=== PATIENT | female | born 1970 ===

== ENCOUNTER 2023-06-12 07:52 | Inpatient (IN) | payer MEDICAID, OTHER ==
[~2023-06-12] VITALS: Ht 157.5 cm; Wt 67.1 kg
[2023-06-12] MEDS ORDERED: HALO1TAB19 PO (08:07)
[2023-06-12 08:20] LABS: COVID AG,FIA SOURCE NASAL SWAB
[2023-06-12 08:42] LABS: BASOPHILS % (AUTO) 0.6 % (0.0-2.0); EOSINOPHILS % (AUTO) 1.2 % (1.0-6.0); HEMATOCRIT 41.1 % (36-46); HEMOGLOBIN 13.8 g/dL (12.0-16.0); LYMPHOCYTES # (AUTO) 2.5 K/uL (1.0-4.8); LYMPHOCYTES % (AUTO) 32.2 % (22.0-44.0); MEAN CORPUSCULAR HGB CONC 33.5 G/dL (31.0-37.0); MEAN CORPUSCULAR VOLUME 96 fL (80-100); MONOCYTES # (AUTO) 0.6 K/uL (0.1-1.0); MONOCYTES % (AUTO) 7.7 % (2.0-9.0); NEUTROPHILS # (AUTO) 4.6 K/uL (1.8-7.7); NEUTROPHILS % (AUTO) 58.3 % (40.0-70.0); PLATELET COUNT (AUTO) 231 K/uL (150-450); RED BLOOD CELL COUNT(AUTO) 4.31 MIL/uL (4.00-5.20); RED CELL DISTRIBUTION WIDTH 14.5 % (11.5-14.5); WHITE BLOOD COUNT (AUTO) 7.8 K/uL (4.5-11.0)
[2023-06-12 08:50] LABS: SARS-COV2 (COVID) ANTIGEN,FIA Negative (Negative)
[2023-06-12 08:52] LABS: ANION GAP 12 mmol/L (8-16); CALCIUM, TOTAL 9.9 mg/dL (8.8-10.5); CARBON DIOXIDE 25 mmol/L (22-29); CHLORIDE 103 mmol/L (98-107); CREATININE 1.03 mg/dL (0.60-1.30); GLOMERULAR FILTR. RATE CALC 56 mL/min (>60); GLUCOSE,RANDOM 89 mg/dL (70-110); POTASSIUM 3.3 mmol/L (3.5-5.1); SODIUM SERUM 140 mmol/L (136-145); UREA NITROGEN, BLOOD 9 mg/dL (7-18)
[2023-06-12] MEDS ORDERED: HALO2 PO (08:56)
[2023-06-12 08:59] LABS: ALANINE AMINOTRANSFERASE 18 U/L (12-78); ALBUMIN 3.4 g/dL (3.4-5.0); ALKALINE PHOSPHATASE 79 U/L (46-116); ASPARTATE AMINOTRANSFERASE 15 U/L (15-37); BILIRUBIN,TOTAL 0.5 mg/dL (0.1-1.0); TOTAL PROTEIN, SERUM 7.5 g/dL (6.4-8.2)
[2023-06-12 09:10] LABS: ALCOHOL, BLOOD (SERUM) < 3 mg/dL (0-10)
[2023-06-12] MEDS: HALOPERIDOL 5 MG TABLET PO ONE (09:11)
[2023-06-12] MEDS: HALOPERIDOL LACTATE 5 MG/ML VIAL IM ONE (09:19)
[2023-06-12] MEDS ORDERED: LORazepam 2 MG TABLET PO PRN (09:30)
[2023-06-12] MEDS ORDERED: ZOLPIDEM TARTRATE 10 MG TABLET PO PRN (09:30)
[2023-06-12] MEDS: DiphenhydrAMINE HCL 50 MG/ML VIAL IM ONE (11:17)
[2023-06-12] MEDS: LORazepam 2 MG/ML VIAL IM ONE (11:18)
[2023-06-12 12:50] VITALS: BP 110/94; PULSE 100; RESP 18; TEMP 97.1; O2SAT 100
[2023-06-12] MEDS: POTASSIUM CHLORIDE 20 MEQ ER TABLET PO ONE (15:00)
[2023-06-12] MEDS ORDERED: PETROLATUM,WHITE 28 GM JELLY TP PRN (19:30)
[2023-06-12] MEDS ORDERED: CloNIDine HCL 0.1 MG TABLET PO PRN (19:30)
[2023-06-12] MEDS ORDERED: DOCUSATE SODIUM 100 MG CAPSULE PO PRN (19:30)
[2023-06-12] MEDS ORDERED: MAG HYDROX/ALUMINUM HYD/SIMETH ES 30 ML SUSPENSION UDCUP PO PRN (19:30)
[2023-06-12] MEDS ORDERED: IBUPROFEN 400 MG TABLET PO PRN (19:30)
[2023-06-12] MEDS ORDERED: ALBUTEROL SULFATE HFA 90 MCG/PUFF 8 GM INHALER IH PRN (19:30)
[2023-06-12] MEDS ORDERED: ONDANSETRON HCL 4 MG TABLET PO PRN (19:30)
[2023-06-12] MEDS ORDERED: ACETAMINOPHEN 325 MG TABLET PO PRN (19:30)
[2023-06-12] MEDS ORDERED: MAGNESIUM HYDROXIDE SUSPENSION 30 ML UDCUP PO PRN (19:30)
[2023-06-12] MEDS ORDERED: GuaiFENesin/D-METHORPHAN [SUGAR-FREE] 200-20MG/10 ML SYRUP UDCUP PO PRN (19:30)
[2023-06-12] MEDS ORDERED: LOPERAMIDE HCL 2 MG CAPSULE PO PRN (19:30)
[2023-06-13 07:10] VITALS: RESP 18
[2023-06-13 08:17] LABS: CHOL/HDL RATIO 3.5 (3.9-5.7); POTASSIUM 3.5 mmol/L (3.5-5.1); THYROID STIMULATING HORMONE 2.08 uIU/mL (0.36-3.74)
[2023-06-13 08:19] VITALS: BP 126/82; PULSE 84; RESP 16; TEMP 98; O2SAT 99
[2023-06-13] MEDS ORDERED: HALOPERIDOL 2 MG TABLET PO SCH (11:15)
[2023-06-13] MEDS: HALOPERIDOL 5 MG TABLET PO SCH (13:56)
[2023-06-13 20:17] VITALS: BP 131/63; PULSE 89; RESP 18; TEMP 97.8; O2SAT 99
[2023-06-14 08:37] VITALS: BP 115/74; PULSE 116; RESP 17; TEMP 97.7; O2SAT 97
[2023-06-14] MEDS: NICOTINE 14 MG/24 HOUR PATCH TD PRN (14:08)
[2023-06-14] MEDS: INFLUENZA VIRUS VACCINE QVS 2023-24 (6MO+)/PF 60 MCG/0.5 ML SYRINGE IM. ONE (17:29)
[2023-06-14 20:12] VITALS: BP 109/63; PULSE 111; RESP 18; TEMP 97.5; O2SAT 99
[2023-06-15 08:17] VITALS: RESP 16
[2023-06-15 23:44] VITALS: BP 113/73; PULSE 98; RESP 17; TEMP 93.2; O2SAT 99
[2023-06-16 16:11] VITALS: RESP 18
[2023-06-16] MEDS: QUEtiapine FUMARATE 100 MG TABLET PO PRN (17:13)
[2023-06-16 20:42] VITALS: RESP 19
[2023-06-17 14:00] VITALS: RESP 18
[2023-06-17 23:24] VITALS: RESP 18
[2023-06-18 08:24] VITALS: RESP 18
[2023-06-18] MEDS ORDERED: HALO5TAB23 PO (13:33)
[2023-06-19] MEDS ORDERED: HALO2 PO (06:18)
== END 2023-06-18 16:09 | disposition home or self-care (01) | DRG 750 ==
LOC: EMS 07:52 → B3A 09:58
PROVIDERS: ADMIT Psychiatry & Neurology Psychiatry; ATTEND Psychiatry & Neurology Psychiatry
PROC: GZHZZZZ Group Psychotherapy (ICD-10-PCS; principal; 2023-06-13)
DX: F25.0 Schizoaffective disorder, bipolar type (principal); E87.6 Hypokalemia; F94.0 Selective mutism; R03.0 Elevated blood-pressure reading, without diagnosis of hypertension; R00.0 Tachycardia, unspecified; Z20.822 Contact with and (suspected) exposure to COVID-19; Z79.899 Other long term (current) drug therapy
CPT/HCPCS: 80053; 80061; 83036; 84132; 84443; 85025; G0480; J1200; J1630; J2060